=== PATIENT | male | born 1960 | race Caucasian/White ===

== ENCOUNTER 2022-11-10 02:30 | Emergency (ER) | payer OTHER, SELFPAY ==
--- NOTE | ~2022-11-10 | CT_ITS ---
EXAMINATION: CT abdomen pelvis wo con DATE: 11/10/2022 06:36 INDICATION: Left flank pain TECHNIQUE: Computed tomography (CT) of the abdomen and pelvis was performed without intravenous contr ast. The dose-length product (DLP) was 384.02 mGy-cm. Automated exposure control and iterative recons truction technique were employed. COMPARISON: None FINDINGS: Calcified pulmonary nodules are consistent with old granulomatous disease. The heart size i s normal. There are calcifications along the caudal margin of the spleen which could reflect prior in jury. The liver, pancreas, gallbladder, and adrenal glands are normal. The kidneys are unremarkable. No stones are identified in the kidneys, ureters, or bladder. No hydronephrosis or hydroureter. No pa thologically enlarged abdominal or pelvic lymph nodes are identified. There is no free intraperitonea l gas or evidence of bowel obstruction. There are bilateral inguinal hernias containing fat. Prostati c calcifications are noted. A moderate volume of colonic stool is present. There is mild lumbar spond ylosis. IMPRESSION: 1. No CT correlate for the patient's symptoms. Reviewed, dictated and finalized at location A. [employer]
[2022-11-10 02:38] VITALS: BP 147/87; PULSE 83; RESP 16; TEMP 36.8; O2SAT 97
[2022-11-10 04:09] LABS: Add Urine Microscopic? NO; Appearance Urine Clear (Clear); Bilirubin Urine Negative (Negative); Blood Urine Negative (Negative); Color Urine Light Yellow (Yellow); Glucose Urine UA Negative (Negative); Ketones Urine Negative (Negative); Leukocyte Esterase Ur Negative LEU/UL (Negative); Nitrate Urine Negative (Negative); Protein Urine Negative (Negative); Specific Grav Ur >= 1.030 (1.001-1.035); Urobilinogen Urine 0.2 mg/dL (<2.0); pH Urine 5.5 (5.0-9.0)
[2022-11-10 06:05] LABS: Basophils Absolute Auto 0.1 K/mm3 (0.0-0.1); Basophils Percent Auto 0.7 % (0.2-1.2); Eosinophils Absolute Auto 0.2 K/mm3 (0-0.3); Hematocrit 44.1 % (42.0-52.0); Hemoglobin 14.9 g/dL (14.0-18.0); Immature Granulocyte Absolute 0.03 K/mm3 (0.00-0.031); Immature Granulocyte Percent A 0.4 % (0-0.5); Lymphocytes Absolute Auto 2.53 K/mm3 (0.9-3.2); Mean Corpuscular HGB Conc 33.8 g/dl (32-36); Mean Corpuscular Hemoglobin 28.5 pg (26-34); Mean Corpuscular Volume 84.5 fl (80-100); Mean Platelet Volume 9.5 fl (7.4-10.4); Monocytes Absolute Auto 0.6 K/mm3 (0.1-0.6); Monocytes Percent Auto 8.5 % (2.6-8.5); Neutrophils Percent Auto 53.4 % (45.5-73.1); Platelet Count Result 217 k/mm3 (150-375); Red Blood Count 5.22 M/mm3 (4.6-6.20); Red Cell Distribution Width 12.8 % (11.5-14.5); White Blood Count 7.5 K/mm3 (4.5-10.0)
--- NOTE | 2022-11-10 06:13 | ED.GENADULT ---
HPI - General Adult General Chief complaint: Abdominal Pain Stated complaint: left flank pain Time Seen by Provider: 11/10/22 05:14 History of Present Illness HPI narrative: This is a 61-year-old male presenting ED with chief complaint of left-sided flank pain. Patient says that the pain started yesterday after. Is a stabbing pain in his left flank that radiates to his left groin. It is 3-8 out of intensity and comes and goes. Patient says this feels exactly like when he had kidney stone in the past. There are no exacerbating or alleviating factors. Patient denies nausea, vomiting, fevers, testicular pain, urinary symptoms. He has note that there is more sediment in his urine than normal. Patient denies any other complaints this time. 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 EYES: No eye pain ENT: Denies rhinorrhea CARDIOVASCULAR: Denies palpitations RESPIRATORY: Denies hemoptysis GASTROINTESTINAL: Denies hematemesis GENITOURINARY: Denies hematuria. SKIN: Denies rash MUSCULOSKELETAL: Denies myalgia. NEUROLOGIC: Denies weakness. PSYCHIATRIC: Denies delusions PMFSH Past Medical History Medical History (Updated 11/11/22 @ 00:00 by Jonna Daemon) Kidney stones Social History Social History (Updated 11/10/22 @ 06:15 by José Miguel Groves MD) Social History: patient denies alcohol or drug use, smokes pack of cigarettes per week Exam Narrative: APPEARANCE: No apparent distress. patient is polite during the interview. His service dog is with him. The dog is also polite. Head: atraumatic. EYES: EOMI, NOSE: Atraumatic NECK: Trachea midline RESPIRATORY: No increased rate of breathing CARDIOVASCULAR: RRR, ABDOMINAL: nondistended, no guarding or rebound, no CVA tenderness, general exam was unremarkable MUSCULOSKELETAl: No obvious deformities NEURO: Alert. Moving 4/4 extremities SKIN:: Warm, dry. Normal color PSYCHIATRIC: Normal affect Course Vital Signs Vital signs: Vital Signs Temperature 98.3 F 11/10/22 02:38 Pulse Rate 83 11/10/22 02:38 Respiratory Rate 16 11/10/22 02:38 Blood Pressure 147/87 H 11/10/22 02:38 Pulse Oximetry 97 11/10/22 02:38 Oxygen Delivery Room Air 11/10/22 02:38 Temperature 98.3 F 11/10/22 02:38 Pulse Rate 57 L 11/10/22 10:38 Respiratory Rate 15 11/10/22 10:38 Blood Pressure 134/67 11/10/22 10:38 Pulse Oximetry 99 11/10/22 10:38 Oxygen Delivery Room Air 11/10/22 02:38 Medical Decision Making MDM Narrative Medical decision making narrative: this is a 61-year-old male presenting ED with flank pain. Differential includes musculoskeletal pain, kidney stones, among others. Basic lab work, CT abdomen pelvis and urinalysis have been ordered. Patient has been given Toradol Tylenol Zofran for his symptoms. 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 patient has been signed out to the oncoming physician pending completion of his workup. Patient's workup was negative for any acute findings. Patient's pain improved with NSAIDs. Patient be discharged with return precautions. Vital Signs Vital Signs: Vital Signs Temperature 98.3 F 11/10/22 02:38 Pulse Rate 83 11/10/22 02:38 Respiratory Rate 16 11/10/22 02:38 Blood Pressure 147/87 H 11/10/22 02:38 Pulse Oximetry 97 11/10/22 02:38 Oxygen Delivery Room Air 11/10/22 02:38 Temperature 98.3 F 11/10/22 02:38 Pulse Rate 57 L 11/10/22 10:38 Respiratory Rate 15 11/10/22 10:38 Blood Pressure 134/67 11/10/22 10:38 Pulse Oximetry 99 11/10/22 10:38 Oxygen Delivery Room Air 11/10/22 02:38 Lab Data 11/10/22 05:52 11/10/22 05:52
[2022-11-10 06:20] LABS: Alanine Aminotransferase 20 U/L (6-50); Albumin Level 4.1 g/dL (3.5-5.1); Alkaline Phosphatase 42 U/L (38-126); Anion Gap 5 mmol/L (8-16); Aspartate Amino Transferase 19 U/L (17-59); Bilirubin,Total 0.4 mg/dL (0.2-1.3); Blood Urea Nitrogen 16 mg/dL (9-20); Calcium 8.8 mg/dL (8.4-10.2); Carbon Dioxide 27 mmol/L (22-30); Chloride 107 mmol/L (98-107); Estimated CRCL calculation 78 ml/min; Estimated Glomerular Filt Rate > 60; Glucose 110 mg/dL (65-110); Potassium 4.4 mmol/L (3.4-5.0); Sodium 139 mmol/L (137-145)
[2022-11-10] MEDS: ONDANSETRON INJ 4 MG/2 ML VIAL IV PUSH (06:43)
[2022-11-10] MEDS: KETOROLAC 15 MG/ML VIAL (*BKC) IV PUSH (06:43)
[2022-11-10] MEDS: ACETAMINOPHEN 500 MG TABLET 1000 MG PO (06:43)
[2022-11-10 07:33] VITALS: BP 105/60; PULSE 58; RESP 15; O2SAT 96
[2022-11-10 10:38] VITALS: BP 134/67; PULSE 57; RESP 15; O2SAT 99
== END 2022-11-10 10:39 | disposition home or self-care (01) ==
PROVIDERS: Emergency Provider Emergency Medicine
DX: R10.9 Unspecified abdominal pain (principal); Z87.442 Personal history of urinary calculi
CPT/HCPCS: 36415; 74176; 80053; 81003; 85025; 96374; 96375; 99284; A9270; J1885; J2405